=== PATIENT | male | born 1995 | race Caucasian/White ===

== ENCOUNTER 2023-12-19 10:06 | Emergency (ER) | payer SELFPAY ==
[2023-12-19 11:24] LABS: Absolute Lymphocytes (CBC) 1.2 K/uL (0.7-4.9); Absolute Monocytes 0.5 K/uL (0.1-1.3); Absolute Neutrophil 5.9 K/uL (1.8-8.0); Basophils % 0.3 % (0-1.3); Eosinophils % 0.3 % (0-4.4); Hematocrit 41.7 % (39.6-49.0); Hemoglobin 14.1 g/dL (13.6-17.9); MCH 31.5 pg (27.0-35.0); MCHC 33.8 g/dL (32.0-36.0); MCV 93.1 fL (80-100); MPV 7.1 fL (7.6-11.3); Monocytes % 6.2 % (3.3-12.3); Neutrophils % 77.2 % (41.7-73.7); Platelets 405 thou/uL (152-406); RBC Red Blood Cell Count 4.48 M/uL (4.33-5.43); Red Cell Distribution Width 12.8 % (12.1-15.2)
[2023-12-19 11:38] LABS: Anion Gap 7.5 mEq/L (5.0-15.0); Potassium 3.5 mEq/L (3.5-5.1)
[2023-12-19 11:59] LABS: Monoscreen NEG (NEG)
[2023-12-19] MEDS ORDERED: NA CHLORIDE 0.9% 1,000 ML ONE (12:47)
[2023-12-19] MEDS ORDERED: dexAMETHasone 10 MG/ML VIAL ONE (12:47)
[2023-12-19] MEDS ORDERED: ACETAMINOPHEN 500 MG TAB ONE (13:09)
[2023-12-19] MEDS ORDERED: HYDROCODONE/CHLORPHEN 5 ML/OSYR ONE (13:09)
--- NOTE | 2023-12-19 14:11 | RAD REPORT ---
EXAMINATION: TWO VIEW CHEST XR CLINICAL INDICATION: Cough;Fever TECHNIQUE: 2 views of the chest was performed. COMPARISON: No prior exam. FINDINGS: The lungs are well inflated and clear. The heart is normal in size. No displaced fractures evident. IMPRESSION: No acute or significant abnormalities.
--- NOTE | 2023-12-19 14:20 | EDPHYS ---
Physician Documentation [facility] Name: Jeffrey Pack Age: 28 yrs Sex: Male : 1995 Arrival Date: 12/19/2023 Time: 10:06 Bed 11 Private MD: ED Physician Savage Iraheta HPI: 12/18 11:06 This 28 yrs old Male presents to ER via Ambulatory with complaints of Flu Symptoms. sb4 11:13 flu like symptoms for a little over 1 week. states started with a high fever and sb4 progressed into cough and congestion. Was initially seen by his PCP 1 week ago, had negative COVID flu strep swabs, and was started on cough syrup and antibiotics. States that his symptoms did not improve so he returned to his PCP 3 days later, had a chest xray, was diagnosed with bronchitis and additionally given cefdinir. states that his symptoms have persisted . Historical: - Allergies: 11:00 No Known Allergies; ss - PMHx: 11:00 Anxiety; ss - PSHx: 11:00 Appendectomy; ss - Immunization history:: Client reports having NOT received the Covid vaccine. - Infectious Disease History:: Denies. - Social history:: Smoking status: Patient reports the use of cigarette tobacco products, smokes one-half pack cigarettes per day. ROS: 11:43 Constitutional: Positive for fever, malaise, poor PO intake, sb4 11:43 Cardiovascular: Positive for chest pain, with cough, 11:43 Respiratory: Positive for cough, with no reported sputum, 11:43 All other systems are negative, Exam: 11:43 Head/Face: Normocephalic, atraumatic. Eyes: Extra-ocular motions intact. Periorbital sb4 areas with no swelling, redness, or edema. ENT: Mucous membranes moist. Cardiovascular: Regular rate and rhythm with a normal S1 and S2. Respiratory: No increased work of breathing, no retractions or nasal flaring. Abdomen/GI: Soft, non-tender, no distension. Skin: Warm, dry with normal turgor. Normal color with no rashes, no lesions, and no evidence of cellulitis. 11:43 Constitutional: The patient appears alert, awake, obviously ill, 11:43 ENT: Exam is negative for ear swelling, TM abnormalities, nasal discharge, enlarged tonsils, TM's: Vital Signs: 10:58 BP 136 / 71; Pulse 94; Resp 16; Temp 99.3(O); Pulse Ox 97% on R/A; Weight 74.84 kg; ss Height 5 ft. 8 in. ; Pain 3/10; 12:57 Resp 18; Temp 101.2; Pulse Ox 97% on R/A; iw 14:19 Resp 16 S; Temp 100(O); Pulse Ox 99% ; iw 10:58 Body Mass Index 25.09 (74.84 kg, 172.72 cm) ss 10:58 Pain Scale: Adult ss MDM: 10:58 Medical Screening Exam initiated sb4 13:44 Data reviewed: vital signs, nurses notes, lab test result(s), radiologic studies, and sb4 as a result, I will discharge patient. Counseling: I had a detailed discussion with the patient and/or guardian regarding the historical points, exam findings, and any diagnostic results supporting the discharge/admit diagnosis, lab results, radiology results, to return to the emergency department if symptoms worsen or persist or if there are any questions or concerns that arise at home. 12/18 11:05 Order name: CBC with Diff; Complete Time: 11:34 sb4 12/18 11:05 Order name: BMP; Complete Time: 11:39 sb4 12/18 11:05 Order name: [place] Screen Profile; Complete Time: 11:59 sb4 12/18 13:05 Order name: Chest Pa And Lat (2 Views) XRAY; Complete Time: 14:12 sb4 12/18 11:05 Order name: IV Saline Lock; Complete Time: 12:47 sb4 12/18 11:05 Order name: Labs collected and sent; Complete Time: 12:47 sb4 Administered Medications: 12:57 Drug: NS 0.9% IV 1000 ml IV at 1000 ml once; to be given as a bolus over 60 minutes iw Route: IV; Rate: 1000 ml; Site: left antecubital; 14:00 Follow up: IV Status: Completed infusion iw 12:57 Drug: Decadron - Dexamethasone IVP 10 mg IVP once Route: IVP; Site: left antecubital; iw 14:00 Follow up: Response: No adverse reaction iw 13:24 Drug: Acetaminophen PO 1000 mg PO once Route: PO; iw 14:00 Follow up: Response: No adverse reaction iw 13:24 Drug: Tussionex Pennkinetic ER PO Suspension 5 ml PO once Route: PO; iw 14:00 Follow up: Response: No adverse reaction iw Disposition: 15:06 Chart complete. sb4 17:20 Co-signature as Attending Physician, Savage Iraheta MD I reviewed the patient's care rn provided by the Advanced Practice Provider and agree with the diagnosis and treatment plan. Disposition Summary: 12/19/23 14:20 Discharge Ordered Notes: Location: Home sb4 Problem: an ongoing problem sb4 Symptoms: have improved sb4 Condition: Stable sb4 Diagnosis - Viral infection, unspecified sb4 - Fever, unspecified sb4 Followup: sb4 - With: Emergency Department - When: As needed - Reason: Trouble breathing, Worsening of condition Discharge Instructions: - Discharge Summary Sheet sb4 - Fever, Adult, [id number] sb4 - Viral Illness, Adult sb4 Forms: - Work release form aa5 - Patient Portal Instructions sb4 - Leadership Thank You Letter sb4 Prescriptions: - Prednisone 20 mg Oral Tablet - take 2 tablets ORAL route once daily for 5 days; 10 tablet; Refills: 0, Product sb4 Selection Permitted Signatures: Dispatcher [employer] EDBonnie Holley, RN Savage Nur MD MD rn Blanchard, Shelby, RN RN ss Brown, Sophia PA-Hang PABekah sb4 Corrections: (The following items were deleted from the chart) 11:06 11:06 CBC+H.LAB.BRZ ordered. EDMS EDMS 11:06 11:06 BASIC METABOLIC PANEL+C.LAB.BRZ ordered. EDMS EDMS 11:06 11:06 MONO SCREEN PROFILE+I.LAB.BRZ ordered. EDMS EDMS
--- NOTE | 2023-12-19 14:20 | ER ---
Nurse's Notes [facility] Name: Jeffrey Pack Age: 28 yrs Sex: Male : 1995 Arrival Date: 12/19/2023 Time: 10:06 Bed 11 Private MD: Diagnosis: Viral infection, unspecified;Fever, unspecified Presentation: 12/18 10:58 Chief complaint: Patient states: cough, runny nose and fever that began 8-9 days ago. ss PT reports he was seen by his PCP last Tuesday and was prescribed medications, but still was not feeling any better after a few days, and had an XRAY obtained of his chest. Pt is here today because he still is not feeling better. Coronavirus screen: Client denies travel out of the [place] in the last 14 days. Ebola Screen: Patient denies exposure to infectious person. Patient denies travel to an Ebola-affected area in the 21 days before illness onset. Initial Sepsis Screen: Does the patient meet any 2 criteria? No. Patient's initial sepsis screen is negative. Does the patient have a suspected source of infection? No. Patient's initial sepsis screen is negative. Risk Assessment: Do you want to hurt yourself or someone else? Patient reports no desire to harm self or others. Onset of symptoms was December 11, 2023. 10:58 Method Of Arrival: Ambulatory 10:58 Acuity: JAZZMINE 3 Triage Assessment: 13:30 General: Appears in no apparent distress. Behavior is calm, cooperative. Pain: iw Complains of pain in head, right arm and left arm. Neuro: Level of Consciousness is awake, alert, obeys commands. Historical: - Allergies: 11:00 No Known Allergies; ss - PMHx: 11:00 Anxiety; ss - PSHx: 11:00 Appendectomy; ss - Immunization history:: Client reports having NOT received the Covid vaccine. - Infectious Disease History:: Denies. - Social history:: Smoking status: Patient reports the use of cigarette tobacco products, smokes one-half pack cigarettes per day. Screenin:39 [facility] ED Fall Risk Assessment (Adult) History of falling in the last 3 months, iw including since admission No falls in past 3 months (0 pts) Score/Fall Risk Level 0 - 2 = Low Risk Oriented to surroundings. [facility] ED Fall Risk Assessment (Adult) Confusion or Disorientation No (0 pts) Intoxicated or Sedated No (0 pts) Impaired Gait No (0 pts) Mobility Assist Device Used No (0 pt) Altered Elimination No (0 pt). Abuse screen: Denies threats or abuse. Nutritional screening: No deficits noted. Tuberculosis screening: No symptoms or risk factors identified. Assessment: 14:19 Reassessment: Patient appears in no apparent distress at this time. Patient and/or iw family updated on plan of care and expected duration. Pain level reassessed. Patient is alert, oriented x 3, equal unlabored respirations, skin warm/dry/pink. 14:39 Reassessment: Patient appears in no apparent distress at this time. Patient and/or iw family updated on plan of care and expected duration. Pain level reassessed. Patient is alert, oriented x 3, equal unlabored respirations, skin warm/dry/pink. Patient states feeling better. Vital Signs: 10:58 BP 136 / 71; Pulse 94; Resp 16; Temp 99.3(O); Pulse Ox 97% on R/A; Weight 74.84 kg; ss Height 5 ft. 8 in. ; Pain 3/10; 12:57 Resp 18; Temp 101.2; Pulse Ox 97% on R/A; iw 14:19 Resp 16 S; Temp 100(O); Pulse Ox 99% ; iw 10:58 Body Mass Index 25.09 (74.84 kg, 172.72 cm) ss 10:58 Pain Scale: Adult ss ED Course: 10:17 Patient arrived in ED. mg5 10:18 Angelic Rico PA-C is PHCP. sb4 10:18 Savage Iraheta MD is Attending Physician. sb4 11:00 Triage completed. ss 11:00 Arm band placed on left wrist. ss 11:20 Inserted saline lock: 20 gauge in left antecubital area, using aseptic technique. Blood ss collected. Flushed with 10 mL NS. 12:56 Bonnie Wood, MITALI is Primary Nurse. iw 14:07 Chest Pa And Lat (2 Views) XRAY In Process Unspecified. EDMS 14:39 Patient has correct armband on for positive identification. iw 14:39 No provider procedures requiring assistance completed. IV discontinued, intact, iw bleeding controlled, No redness/swelling at site. Pressure dressing applied. Administered Medications: 12:57 Drug: NS 0.9% IV 1000 ml IV at 1000 ml once; to be given as a bolus over 60 minutes iw Route: IV; Rate: 1000 ml; Site: left antecubital; 14:00 Follow up: IV Status: Completed infusion iw 12:57 Drug: Decadron - Dexamethasone IVP 10 mg IVP once Route: IVP; Site: left antecubital; iw 14:00 Follow up: Response: No adverse reaction iw 13:24 Drug: Acetaminophen PO 1000 mg PO once Route: PO; iw 14:00 Follow up: Response: No adverse reaction iw 13:24 Drug: Tussionex Pennkinetic ER PO Suspension 5 ml PO once Route: PO; iw 14:00 Follow up: Response: No adverse reaction iw Medication: 14:19 VIS not applicable for this client. iw Outcome: 14:20 Discharge ordered by . sb4 14:38 Discharged to home ambulatory, with family, iw 14:38 Condition: good 14:38 Discharge instructions given to patient, family, Instructed on discharge instructions, follow up and referral plans. medication usage, Demonstrated understanding of instructions, follow-up care, medications, Prescriptions given X 1, 14:39 Patient left the ED. iw Signatures: Dispatcher [employer] EDBonnie Holley RN RN iw Scarlett Alberts RN RN ss Brown, Sophia, PA-C PABekah trotter4 Sis Tillman mg5 Corrections: (The following items were deleted from the chart) 23:26 14:38 Discharge instructions given to patient, family, Instructed on discharge iw instructions, follow up and referral plans. medication usage, Demonstrated understanding of instructions, follow-up care, medications, Prescriptions given X 3, iw
[2023-12-19 14:48] VITALS: BP 136/71
[2023-12-19 14:50] VITALS: TEMP 100; O2SAT 99
== END 2023-12-19 14:39 | disposition home or self-care (01) ==
LOC: ER 10:06
DX: B34.9 Viral infection, unspecified (principal); F17.210 Nicotine dependence, cigarettes, uncomplicated; Z28.310 Unvaccinated for COVID-19
CPT/HCPCS: 36415; 71046; 80048; 85025; 86308; 96361; 96374; 99284; J1100; J7030